=== PATIENT | female | born 1945 | race Caucasian/White ===

== ENCOUNTER → 2021-01-25 | Outpatient (CLI) | payer MEDICARE ==
[~2021-01-25] MED LIST: FUROSEMIDE40 MG PO; IRON325 M1 PO; LEVOTHYROXINE88 MCG PO; LOPRESSOR 25 MG25 MG PO; MELATONIN10 MG PO; PROTONIX40 MG PO; SIMVASTATIN20 MG PO; VITAMIN D325 MC6 PO; XARELTO20 MG PO
[2021-01-25 13:42] LABS: HEMOGLOBIN 13.1 gm/dl (12.3-15.3); RED BLOOD COUNT 4.38 M/UL (4.00-5.10); WHITE BLOOD COUNT 8.9 K/UL (4.5-11.0)
== END ==
LOC: LAB 13:29
DX: D64.9 Anemia, unspecified (principal)
CPT/HCPCS: 36415; 85027